=== PATIENT | female | born 1985 | race Caucasian/White ===

== ENCOUNTER 2019-09-12 10:22 | Emergency (ER) | payer OTHER ==
[~2019-09-12] VITALS: Ht 167.6 cm; Wt 113.4 kg
[~2019-09-12 10:22] MED LIST: ACETAMINOPHEN-1 EAC1 PO; AMOXICILLIN 50500 MG PO; IBUPROFEN 800800 M1 PO; WELLBUTRIN XL300 MG PO; XANAX1 MG PO; [UNRECOGNIZED DRUG - OTHER] PO
[2019-09-12] MEDS ORDERED: PROAIR HFA8.5 GM INH (11:02)
[2019-09-12] MEDS ORDERED: PREDNISONE 20 M20 MG PO (11:02)
[2019-09-12 12:04] VITALS: BP 145/93
== END 2019-09-12 12:21 | disposition home or self-care (01) ==
LOC: ER 10:22
DX: J45.901 Unspecified asthma with (acute) exacerbation (principal); Z76.0 Encounter for issue of repeat prescription; Z79.899 Other long term (current) drug therapy; Z98.890 Other specified postprocedural states